=== PATIENT | female | born 2000 | race Caucasian/White ===

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

== ENCOUNTER → 2020-02-28 | Outpatient (CLI) | payer OTHER ==
--- NOTE | 2020-02-28 08:11 | US ---
EXAMINATION TYPE: US pelvic complete DATE OF EXAM: 02/28/2020 COMPARISON: NONE CLINICAL HISTORY: N93.8 Dysfunctional uterine bleeding. menses lasting 3-4 weeks TECHNIQUE: Transabdominal (TA) Date of LMP: unknown EXAM MEASUREMENTS: Uterus: 10.2 x 2.9 x 4.4 cm Endometrial Stripe: 0.2 cm Right Ovary: 4.9 x 2.7 x 3.5 cm Left Ovary: 2.6 x 1.5 x 1.9 cm 1. Uterus: Anteverted 2. Endometrium: appears wnl 3. Right Ovary: cystic area = 3.8 x 2.4 x 3.2cm 4. Left Ovary: appears wnl 5. Bilateral Adnexa: wnl 6. Posterior cul-de-sac: wnl IMPRESSION: 1. There is a 3.8 cm right ovarian cystic lesion. Finding most likely related to simple ovarian cyst. Correlate clinically to exclude other etiologies. If clinically warranted correlation with beta hCG could be obtained.
== END | disposition home or self-care (01) ==
LOC: RADUSWWP 07:29
PROVIDERS: ATTEND Obstetrics & Gynecology
DX: N83.201 Unspecified ovarian cyst, right side (principal); N93.8 Other specified abnormal uterine and vaginal bleeding
CPT/HCPCS: 76856

== ENCOUNTER → 2020-04-24 | Outpatient (CLI) | payer OTHER | END | disposition home or self-care (01) | LOC: LABWHC1 10:45 | PROVIDERS: ATTEND Obstetrics & Gynecology | DX: Z30.9 Encounter for contraceptive management, unspecified (principal) | CPT/HCPCS: 36415; 84702 ==

== ENCOUNTER → 2022-06-03 | Outpatient (CLI) | payer OTHER ==
--- NOTE | 2022-06-03 09:55 | US ---
EXAMINATION TYPE: US abdomen limited DATE OF EXAM: 06/03/2022 COMPARISON: NONE CLINICAL HISTORY: R19.02 LUQ abdominal swelling/mass/lump. LUQ mass and pain in the left side. TECHNIQUE: Multiple sonographic images of the left upper quadrant are obtained. FINDINGS: EXAM MEASUREMENTS: Spleen: 8.9 cm Left Kidney: 10.3 x 4.5 x 3.2 cm ASSISTANT MANAGER NOTES: Limited due to gas. 1. Spleen: Appears wnl 2. Left Kidney: No hydronephrosis or masses seen Scanned patient's area of concern within the left upper quadrant. No abnormalities seen by ultrasound . IMPRESSION: Normal size spleen and left kidney. No left-sided hydronephrosis. No suspicious masses se en on images saved of the left upper quadrant.
[2022-06-03 14:28] LABS: Basophils # (A) 0.11 X 10*3/uL (0.00-0.10); Basophils % (A) 1.3 %; Eosinophils # (A) 0.32 X 10*3/uL (0.04-0.35); Eosinophils % (A) 3.9 %; HCT 44.1 % (37.2-46.3); HGB 13.7 g/dL (12.0-15.0); Immature Grans, Automated 0.4 %; Lymphocytes # (A) 1.78 X 10*3/uL (0.90-5.00); Lymphocytes % (A) 21.7 %; MCH 30.2 pg (27.0-32.0); MCHC 31.1 g/dL (32.0-37.0); MCV 97.4 fL (80.0-97.0); Mean Platelet Volume 11.2 fL (9.5-12.2); Monocytes # (A) 0.49 X 10*3/uL (0.20-1.00); NRBC Per 100 WBC 0 /100 WBCS (0.0-0.0); Neutrophils # (A) 5.46 X 10*3/uL (1.80-7.70); Neutrophils % (A) 66.7 %; Platelet Count 239 X 10*3/uL (140-440); RBC 4.53 X 10*6/uL (4.10-5.20); WBC 8.19 X 10*3/uL (4.50-10.00)
[2022-06-03 14:53] LABS: African American GFR (CKD) 108.7 (60.0-200.0); Albumin 4.3 g/dL (3.8-4.9); Albumin/Globulin Ratio 1.66 (1.60-3.17); Anion Gap 9.9 mmol/L (10.00-18.00); BUN/Creat Ratio 10.15 Ratio (12.00-20.00); Blood Urea Nitrogen 8.8 mg/dL (9.0-27.0); Carbon Dioxide 25.5 mmol/L (20.0-27.5); Globulin 2.6 g/dL (1.6-3.3); Non-African American GFR(CKD) 93.8 (60.0-200.0); Potassium 3.7 mmol/L (3.5-5.5); T4, Free (Free Thyroxine) 1.21 ng/dL (0.800-1.800); Total Bilirubin 0.4 mg/dL (0.30-1.20); Total Protein 6.9 g/dL (6.2-8.2)
== END | disposition home or self-care (01) ==
LOC: RADUSWWP 08:52
PROVIDERS: ATTEND Family Medicine
DX: R19.02 Left upper quadrant abdominal swelling, mass and lump (principal); Z68.24 Body mass index [BMI] 24.0-24.9, adult
CPT/HCPCS: 76705; 80053; 84439; 84443; 85025

== ENCOUNTER 2023-01-14 08:33 | Emergency (ER) | payer OTHER ==
--- NOTE | 2023-01-14 08:53 | ED ---
Extremity Problem HPI - General Chief complaint: Recheck/Abnormal Lab/Rx Stated complaint: lump on arm Time Seen by Provider: 01/14/23 08:34 Source: patient, RN notes reviewed Mode of arrival: ambulatory Limitations: no limitations - History of Present Illness Initial comments: This is a 22-year-old female who presents to the emergency department for right arm pain. Patient states that she was donating plasma 2 days ago, and they were unable to get much blood from her. Afterwards she started to notice that her right arm was very achy and at one point started to swell up. Yesterday she noticed a very prominent vein. That has since resolved, however she now feels a lump in the area where the needle was. States that the pain is largely in the a ntecubital fossa where they jayson her blood. Denies any fevers, chills, sore throat, cough, dyspnea, chest pain, palpitations, abdominal pain, nausea, vomiting, diarrhea, back pain, or heada ches. MD Complaint: extremity pain, extremity swelling - Related Data Home Medications Medication Instructions Recorded Confirmed Pnv,Calcium 72/Iron/Folic Acid 1 tab PO DAILY 08/04/17 08/10/17 [ Plus Tablet] Previous Rx's Medication Instructions Recorded Ibuprofen [Motrin] 600 mg PO Q6HR PRN #60 tab 08/12/17 Allergies Allergy/AdvReac Type Severity Reaction Status Date / Time No Known Allergies Allergy Verified 01/14/23 08:37 Review of Systems ROS Statement: Those systems with pertinent positive or pertinent negative responses have been documented in the HPI. ROS Other: All systems not noted in ROS Statement are negative. Past Medical History Past Medical History: No Reported History History of Any Multi-Drug Resistant Organisms: None Reported Past Surgical History: No Surgical Hx Reported Past Anesthesia/Blood Transfusion Reactions: No Reported Reaction Past Psychological History: No Psychological Hx Reported Smoking Status: Never smoker Past Alcohol Use History: None Reported Past Drug Use History: None Reported - Past Family History Mother Family Medical History: Hypertension General Exam Limitations: no limitations General appearance: alert, in no apparent distress Head exam: Present: atraumatic, normocephalic, normal inspection Respiratory exam: Present: normal lung sounds bilaterally. Absent: respiratory distress, wheezes, rales, rhonchi, stridor Cardiovascular Exam: Present: regular rate, normal rhythm, normal heart sounds. Absent: systolic murmur, diastolic murmur, rubs, gallop, clicks Extremities exam: Present: other (Minor ecchymosis and tenderness to the right antecubital fossa. There is no erythema, swelling, or tenderness to the rest of the extremity. 2+ radial pulses. Capillary refill less than 1 second.) Neurological exam: Present: alert, oriented X3, CN II-XII intact Psychiatric exam: Present: normal affect, normal mood Course Vital Signs 01/14/23 01/14/23 08:34 10:31 Temperature 98.4 F 97.8 F Pulse Rate 100 82 Respiratory 20 16 Rate Blood Pressure 137/89 130/76 O2 Sat by Pulse 99 99 Oximetry Medical Decision Making - Medical Decision Making This is a 22-year-old female who presents to the emergency department for right arm pain. Was pt. sent in by a medical professional or institution? @ -No Did you speak to anyone other than the patient for history? @ -No Did you review nursing and triage notes? @ -Yes, and I agree, it is accurate with regards to the patient's symptoms. Were old charts reviewed? @ -No Differential Diagnosis? @ -Differential Arm Pain: Fracture, cellulitis, DVT, supreficial thrombophlebitis, this is not meant to be an all-inclusive list. EKG interpreted by me (3pts min.)? @ -Not obtained X-rays interpreted by me (1pt min.)? @ -Not obtained CT interpreted by me (1pt min.)? @ -Not obtained U/S interpreted by me (1pt. min.)? @ -Duplex US of the right upper extremity obtained. My interpretation identifies no evidence of a DVT. What testing was considered but not performed? (CT, X-rays, U/S, labs)? Why? @ -None What meds were considered but not given? Why? @ -None Did you discuss the management of the patient with other professionals? @ -No Did you reconcile home meds? @ -No Was smoking cessation discussed for >3mins.? @ -No Was critical care preformed (if so, how long)? @ -No Were there social determinants of health that impacted care today? How? (Homelessness, low income, unemployed, alcoholism, drug addiction, transportation, low edu. Level, literacy, decrease access to med. care, [facility], rehab)? @ -No Was there de-escalation of care discussed even if they declined? (Discuss DNR or withdrawal of care, Hospice)? @ -No What co-morbidities impacted this encounter? (DM, HTN, Smoking, COPD, CAD, C ancer, CVA, Hep., AIDS, mental health diagnosis, sleep apnea, morbid obesity)? @ -None Was patient admitted / discharged? @ -Discharged. Duplex ultrasound of the right upper extremity obtained revealing no evidence of a DVT or other acute process. Advised supportive care with ibuprofen and Tylenol as needed for pain relief. Also discussed warm compresses over the affected area. Undiagnosed new problem with uncertain prognosis? @ -None Drug Therapy requiring intensive monitoring for toxicity (Heparin, Nitro, Insulin, Cardizem)? @ -None Were any procedures done? @ -None Diagnosis/symptom? @ -Right arm pain Acute, or Chronic, or Acute on Chronic? @ -Acute Uncomplicated (without systemic symptoms) or Complicated (systemic symptoms)? @ -Uncomplicated Side effects of treatment? @ -None Exacerbation, Progression, or Severe Exacerbation] @ -Not applicable Poses a threat to life or bodily function? @ -No Return precautions reviewed in depth, the patient is instructed to return to the emergency department with any new, worsening, or concerning symptoms. Patient verbalized understanding. This case was discussed in detail with the attending ED physician, Dr. Haines. Presentation, findings, and treatment plan discussed in detail as well. - Radiology Data Radiology results: report reviewed, image reviewed Disposition Clinical Impression: Right arm pain Disposition: HOME SELF-CARE Instructions (If sedation given, give patient instructions): Arm Pain (ED) Additional Instructions: Return to the emergency department with any new, worsening, or concerning symptoms. Alternate with ibuprofen and Tylenol as needed for pain relief. You can also apply warm compresses. Follow up with your primary care provider in 1- 2 days. Is patient prescribed a controlled substance at d/c from ED?: No Referrals: Inocencio Carrera Jr, DO [Primary Care Provider] - 1-2 days
--- NOTE | 2023-01-14 10:19 | US ---
EXAMINATION TYPE: US venous doppler duplex UE RT DATE OF EXAM: 01/14/2023 COMPARISON: NONE CLINICAL INDICATION: Female, 22 years old with history of Arm pain and swelling; lump patient donated plasma on Thursday. Pain SIDE PERFORMED: right Right Arm: Negative for DVT IMPRESSION: Grayscale, color doppler, spectral doppler imaging performed of the deep veins of the upper extremiti es. There is normal flow, compressibility and vascular waveforms.
[2023-01-14 10:33] VITALS: BP 130/76; PULSE 82; RESP 16; TEMP 97.8
== END 2023-01-14 10:32 | disposition home or self-care (01) ==
LOC: EC 08:33
DX: M79.601 Pain in right arm (principal)
CPT/HCPCS: 99284

== ENCOUNTER 2023-02-16 07:34 | Emergency (ER) | payer OTHER ==
[2023-02-16 07:41] VITALS: BP 147/71; PULSE 101; RESP 18; TEMP 98.4
[2023-02-16] MEDS ORDERED: KETOROLAC 15 MG/ML 1 ML VIAL IM STA (07:56)
--- NOTE | 2023-02-16 08:00 | ED ---
General Adult HPI - General Chief complaint: Back Pain/Injury Stated complaint: R Side Pain Time Seen by Provider: 02/16/23 07:45 Source: patient, RN notes reviewed, old records reviewed Mode of arrival: ambulatory Limitations: no limitations - History of Present Illness Initial comments: This is a 22-year-old female presents emergency Department complaining of lower back pain on the left side. Patient states started hurting on Thursday of last week and persists today. Movement makes it worse palpation makes it worse. Patient states she also had some shoulder pain and leg pain last week but it is both subsided at this point. Patient has no decreased range of motion no decreased strength and decreased sensation. Patient states pain the leg was a pins and needle sensation in the shoulder pain was improved with her 's massage. - Related Data Home Medications Medication Instructions Recorded Confirmed Pnv,Calcium 72/Iron/Folic Acid 1 tab PO DAILY 08/04/17 08/10/17 [ Plus Tablet] Previous Rx's Medication Instructions Recorded Ibuprofen [Motrin] 600 mg PO Q6HR PRN #60 tab 08/12/17 Cyclobenzaprine [Flexeril] 5 mg PO TID #20 tab 02/16/23 Ibuprofen [Motrin] 600 mg PO Q6HR PRN #20 tab 02/16/23 Allergies Allergy/AdvReac Type Severity Reaction Status Date / Time No Known Allergies Allergy Verified 02/16/23 07:40 Review of Systems ROS Statement: Those systems with pertinent positive or pertinent negative responses have been documented in the HPI. ROS Other: All systems not noted in ROS Statement are negative. Past Medical History Past Medical History: No Reported History History of Any Multi-Drug Resistant Organisms: None Reported Past Surgical History: No Surgical Hx Reported Past Anesthesia/Blood Transfusion Reactions: No Reported Reaction Past Psychological History: No Psychological Hx Reported Smoking Status: Never smoker Past Alcohol Use History: None Reported Past Drug Use History: None Reported - Past Family History Mother Family Medical History: Hypertension General Exam - General Exam Comments Initial Comments: GENERAL Patient is well-developed and well-nourished. Patient is in mild distress. EYES Patient's pupils are equal and round. Extraocular motion is intact SKIN Unremarkable NEURO The patient is alert and oriented 3 PYSCH Patient has normal interpersonal interactions. MUSCULOSKELETAL Patient has full range of motion of all 4 extremities. Patient has some lower left back pain on palpation. Patient is no pain in the shoulder trapezius muscles. Patient has no pain anywhere on the leg when I palpate there is no swelling of the legs or arms is no redness of Limitations: no limitations Course Vital Signs 02/16/23 07:38 Temperature 98.4 F Pulse Rate 101 H Respiratory 18 Rate Blood Pressure 147/71 O2 Sat by Pulse 100 Oximetry Medical Decision Making - Medical Decision Making Was pt. sent in by a medical professional or institution (, [facility]HAEL, AUTOMOTIVE CENTER MANAGER, urgent care, hospital, or fpc...) When possible be specific @ -No Did you speak to anyone other than the patient for history (EMS, parent, family, police, friend...)? What history was obtained from this source @ -No Did you review nursing and triage notes (agree or disagree)? Why? @ -I reviewed and agree with nursing and triage notes Were old charts reviewed (outside hosp., previous admission, EMS record, old EKG, old radiological studies, urgent care reports/EKG's, fpc records)? Report findings @ -No old charts were reviewed Differential Diagnosis (chest pain, altered mental status, abdominal pain women, abdominal pain men, vaginal bleeding, weakness, fever, dyspnea, syncope, headache, dizziness, GI bleed, back pain, seizure, CVA, palpatations, mental health, musculoskeletal)? @ -Differential Musculoskeletal Muscular strain, contusion, ligament sprain, fracture, arthritis, septic arthritis, bursitis, cellulitis, muscle spasm, nerve compression, DVT, arterial occlusion, herpes zoster, electrolyte abnormality, tumor.... This is not meant to be in all inclusive list EKG interpreted by me (3pts min.). @ -As above X-rays interpreted by me (1pt min.). @ -X-ray of the lumbosacral spine shows no acute abnormality CT interpreted by me (1pt min.). @ -None done U/S interpreted by me (1pt. min.). @ -None done What testing was considered but not performed or refused? (CT, X-rays, U/S, labs)? Why? @ -None What meds were considered but not given or refused? Why? @ -None Did you discuss the management of the patient with other professionals (professionals i.e. , RACHAEL, AUTOMOTIVE CENTER MANAGER, lab, RT, psych nurse, licensed social worker, harp regulator, teacher, information security officer, casework specialist)? Give summary @ -No Was smoking cessation discussed for >3mins.? @ -No Was critical care preformed (if so, how long)? @ -No Were there social determinants of health that impacted care today? How? (Homelessness, low income, unemployed, alcoholism, drug addiction, transportation, low edu. Level, literacy, decrease access to med. care, long term, rehab)? @ -No Was there de-escalation of care discussed even if they declined (Discuss DNR or withdrawal of care, Hospice)? DNR status @ -No What co-morbidities impacted this encounter? (DM, HTN, Smoking, COPD, CAD, Cancer, CVA, ARF, Chemo, Hep., AIDS, mental health diagnosis, sleep apnea, morbid obesity)? @ -None Was patient admitted / discharged? Hospital course, mention meds given and route, prescriptions, significant lab abnormalities, going to OR and other p ertinent info. @ -Patient should shot of Toradol in the emergency department and was feeling better. Patient will be discharged home on Motrin and low dose Flexeril Undiagnosed new problem with uncertain prognosis? @ -No Drug Therapy requiring intensive monitoring for toxicity (Heparin, Nitro, Insulin, Cardizem)? @ -No Were any procedures done? @ -No Diagnosis/symptom? @ -Lumbosacral strain Acute, or Chronic, or Acute on Chronic? @ -Acute Uncomplicated (without systemic symptoms) or Complicated (systemic symptoms)? @ -Uncomplicated Side effects of treatment? @ -No Exacerbation, Progression, or Severe Exacerbation? @ -No Poses a threat to life or bodily function? How? (Chest pain, [place], [place], pneumonia, PE, COPD, DKA, ARF, appy, cholecystitis, CVA, Diverticulitis, Homicidal, Suicidal, threat to staff... and all critical care pts) @ -No Disposition Clinical Impression: Strain of lumbar region Disposition: HOME SELF-CARE Condition: Good Instructions (If sedation given, give patient instructions): Low Back Strain (ED) Prescriptions: Cyclobenzaprine [Flexeril] 5 mg PO TID #20 tab Ibuprofen [Motrin] 600 mg PO Q6HR PRN #20 tab PRN Reason: For pain Is patient prescribed a controlled substance at d/c from ED?: No Referrals: Keena West [Primary Care Provider] - 1-2 days Time of Disposition: 08:49
--- NOTE | 2023-02-16 08:36 | XR ---
EXAMINATION TYPE: XR lumbosacral spine min 4V DATE OF EXAM: 02/16/2023 8:28 AM CLINICAL INDICATION:Female, 22 years old with history of Lumbar pain; [facility] COMPARISON: None TECHNIQUE: Frontal, lateral , bilateral oblique and coned in L5-S1 lateral views of the spine. FINDINGS: No evidence of any acute osseous pathology. No evidence of loss of vertebral body height i s seen. There is straightened alignment of the lumbar vertebral bodies. Minimal osteophyte formation and disc space narrowing. There is facet joint arthropathy throughout the spine. Scattered at least mild neural foraminal stenosis worse at L5-S1. IMPRESSION: 1. No acute fracture. 2. Mild multilevel disc degeneration.
== END 2023-02-16 09:11 | disposition home or self-care (01) ==
LOC: EC 07:34
DX: S39.012A Strain of muscle, fascia and tendon of lower back, initial encounter (principal); X58.XXXA Exposure to other specified factors, initial encounter
CPT/HCPCS: 72110; 99283; 96372; J1885